=== PATIENT | male | born 1975 | race Two or more races ===

== ENCOUNTER 2023-02-03 06:10 | Emergency (ER) | payer MEDICAID, OTHER ==
[~2023-02-03] VITALS: Ht 175.3 cm; Wt 107.1 kg
[2023-02-03 07:16] LABS: Urine Bacteria NONE SEEN /hpf (None Seen); Urine Blood Negative /uL (Negative); Urine Clarity Clear (Clear); Urine Color Yellow (Yellow); Urine Mucus FEW (None Seen); Urine Protein, UAD TRACE (Negative); Urine Specific Gravity 1.026 (1.001-1.035); Urine WBC <1 /hpf (0 - 3); Urine pH 6.5 (5.0-8.0)
[2023-02-03 08:57] VITALS: BP 137/88; PULSE 94; RESP 18; TEMP 98.1; O2SAT 99
== END 2023-02-03 08:59 | disposition home or self-care (01) ==
LOC: ER 06:10
DX: B34.9 Viral infection, unspecified (principal); F17.210 Nicotine dependence, cigarettes, uncomplicated; Z98.890 Other specified postprocedural states
CPT/HCPCS: 71046; 81001; 93005

== ENCOUNTER 2023-02-24 12:59 | Emergency (ER) | payer MEDICAID ==
[~2023-02-24] VITALS: Ht 175.3 cm; Wt 114.1 kg
[2023-02-24 13:50] LABS: Basophils # (auto) 0 10 ^3/uL (0-0.2); Basophils % (auto) 0.7 % (0.0-2.0); Eosinophils # (auto) 0.1 10 ^3/uL (0-0.8); Eosinophils % (auto) 2.5 % (0.0-7.0); Hematocrit 44.4 % (41.0-53.0); Hemoglobin 15.6 g/dL (13.5-17.5); Lymphocytes # (auto) 1.7 10 ^3/uL (0.4-5.4); Lymphocytes % (auto) 39.3 % (10.0-50.0); Mean Corpuscular Hemoglobin 30.8 pg (28.0-32.0); Mean Corpuscular Hgb Conc. 35.1 g/dL (32.0-36.0); Mean Corpuscular Volume 87.5 fL (80.0-100.0); Monocytes # (auto) 0.3 10 ^3/uL (0-1.3); Monocytes % (auto) 6.5 % (0.0-12.0); Neutrophils # (auto) 2.2 10 ^3/uL (1.6-8.6); Nucleated Red Blood Cells % 0.1 %; Red Blood Cells 5.08 10^6/uL (4.5-5.90); Red Cell Distribution Width 12.9 % (11.8-14.3); White Blood Cell 4.4 10^3/uL (4.4-10.8)
[2023-02-24 13:59] LABS: Calcium 9.6 mg/dL (8.5-10.1); Carbon Dioxide 31 mmol/L (20-30)
[2023-02-24 14:04] LABS: Alkaline Phosphatase 68 U/L (46-116); BUN/Creatinine Ratio 12.3 (10.0-20.0); Blood Urea Nitrogen 10 mg/dL (9-23); Glucose 96 mg/dL (74-106)
[2023-02-24 14:06] LABS: Alanine Aminotransferase 23 U/L (7-40); Albumin 4.4 g/dL (3.2-4.8); Aspartate Aminotransferase 15 U/L (13-40); Bilirubin, Total 0.6 mg/dL (0.2-1.0); Total Protein 6.9 g/dL (5.7-8.2)
[2023-02-24 14:21] LABS: Urine Bacteria NONE SEEN /hpf (None Seen); Urine Blood Negative /uL (Negative); Urine Clarity Clear (Clear); Urine Color Yellow (Yellow); Urine Protein, UAD Negative (Negative); Urine WBC <1 /hpf (0 - 3); Urine pH 6.5 (5.0-8.0)
[2023-02-24 14:55] LABS: Anion Gap 4 (5-15); Chloride 107 mmol/L (98-107); Potassium 4.7 mmol/L (3.5-5.1); Sodium 142 mmol/L (136-145)
[2023-02-24 18:27] LABS: COVID19 ANTIGEN SOFIA FIA NEGATIVE (NEGATIVE); Rapid Influenza A Negative (Negative); Rapid Influenza B Negative (Negative)
[2023-02-24] MEDS ORDERED: cloNIDine HCL 0.1 MG TAB PO ONE (19:15)
[2023-02-24 19:28] VITALS: BP 154/106; PULSE 83; RESP 18; TEMP 97.7; O2SAT 97
== END 2023-02-24 20:33 | disposition home or self-care (01) ==
LOC: ER 12:59
DX: B34.9 Viral infection, unspecified (principal); F17.210 Nicotine dependence, cigarettes, uncomplicated; Z20.822 Contact with and (suspected) exposure to COVID-19; Z98.890 Other specified postprocedural states
CPT/HCPCS: 36415; 80053; 81001; 84484; 85025; 87426; 87804; 93005

== ENCOUNTER 2023-05-08 08:35 | Emergency (ER) | payer MEDICAID ==
[~2023-05-08] VITALS: Ht 170.2 cm; Wt 117.0 kg
[2023-05-08 09:40] VITALS: PULSE 60; RESP 18; O2SAT 98
[2023-05-08] MEDS ORDERED: KETOROLAC TROMETH 30 MG/ML 1ML VIAL IM ONE (10:15)
[2023-05-08 11:11] VITALS: BP 152/102; PULSE 55; RESP 16; TEMP 98; O2SAT 98
[2023-05-08] MEDS ORDERED: MELO7.5T7 PO (12:12)
[2023-05-08] MEDS ORDERED: ACET500T58 PO (12:12)
== END 2023-05-08 12:22 | disposition home or self-care (01) ==
LOC: ER 08:35
DX: M54.2 Cervicalgia (principal); I10 Essential (primary) hypertension; F17.210 Nicotine dependence, cigarettes, uncomplicated; Z79.899 Other long term (current) drug therapy
CPT/HCPCS: 72040; 96372; 99283; J1885